=== PATIENT | female | born 1930 | race Caucasian/White ===

== ENCOUNTER 2017-02-13 08:40 | Day surgery (SDC) | payer MEDICARE ==
[~2017-02-13] VITALS: Ht 165.1 cm; Wt 65.8 kg
[~2017-02-13 08:40] MED LIST: CARBIDOPA-LEVO1 EAC2 PO; REQUIP2 MG PO
--- NOTE | 2017-02-13 10:56 | NUR ---
02/13/17 1056 Doretha Menezes [id number] PATIENT ARRIVES TO PACU SLEEPING, OPENS EYES TO VERBAL STIMULI. BILAT LEGS ARE VERY RESTLESS, PATIENT HAS NOT HAD DOSE OF CARB/LEVO SINCE 399, HELP DESK ANALYST WILL ORDER ANOTHER DOSE. PATIENT HAS NO OTHER COMPLAINTS OTHER THAN HER CHRONIC RESTLESS LEGS. PATIENT HAD GENERAL ANESTHESIA WITH LMA, WITH ABRASION NOTED ABOVE UPPER LIP, HELP DESK ANALYST AWARE.
--- NOTE | 2017-02-13 11:39 | NUR ---
PT QUITE RESTLESS ON RETURN TO DAY SURGERY. IV SALINE LOCKED AND PT STANDS AND REPORTS A SIGNIFICANT DECREASE IN SYMPTOMS AND STATES "THAT FEELS A LOT BETTER". PT'S DAUGHTER AND COUSIN REMAIN IN THE ROOM WITH THE PATIENT. JUICE, WATER AND SNACKS GIVEN TO PATIENT. CALL LIGHT W/IN REACH. PLAN OF CARE DISCUSSED AND ALL VERBALIZE UNDERSTANDING.
--- NOTE | 2017-02-13 12:48 | NUR ---
PT UP @ BS THROUGHOUT ENTIRE DAY SURGERY STAY. PT USES BS COMMODE MULTIPLE TIMES AND TRANSFERS SELF WELL. PT TOLERATING SNACKS WELL ALSO. VERBAL DC INSTRUCTIONS GIVEN TO PT AND HER DAUGHTER AND BOTH VERBALIZE UNDERSTANDING. PT TRANSFERS TO AND TO PERSONAL VEHICLE WELL AND IS DC HOME. MEDICAL IMPLANT CARD GIVEN TO PATIENT.
== END 2017-02-13 12:40 | disposition home or self-care (01) ==
LOC: OPS 08:40 → DS 08:40 → OPS 10:30 → DS 10:30 → OPS 12:40
PROVIDERS: Ophthalmology
PROC: 08RJ3JZ Replacement of Right Lens with Synthetic Substitute, Percutaneous Approach (ICD-10-PCS; principal; 2017-02-13 10:00)
DX: H25.11 Age-related nuclear cataract, right eye (principal); M19.90 Unspecified osteoarthritis, unspecified site; G25.81 Restless legs syndrome; Z88.2 Allergy status to sulfonamides; Z82.49 Family history of ischemic heart disease and other diseases of the circulatory system
CPT/HCPCS: 00140; J2704